=== PATIENT | female | born 1980 | race Two or more races ===

== ENCOUNTER 2019-04-23 07:19 | Outpatient (CLI) | payer OTHER | END 2019-04-23 08:54 | disposition home or self-care (01) | LOC: SONOGRAMA 07:19 | DX: E04.1 Nontoxic single thyroid nodule (principal) ==

== ENCOUNTER 2019-07-10 05:22 | Day surgery (SDC) | payer OTHER ==
[~2019-07-10 05:22] MED LIST: ALTACE10 MG PO; JARDIANCE10 MG PO; SYNTHROID150 MCG PO
== END 2019-07-10 11:50 | disposition home or self-care (01) ==
LOC: CIR.AMB 05:22
DX: K80.10 Calculus of gallbladder with chronic cholecystitis without obstruction (principal)